=== PATIENT | male | born 1945 | race Caucasian/White ===

== ENCOUNTER 2024-08-31 10:18 | Day surgery (SDC) | payer MEDICARE, MEDICAID, SELFPAY ==
[2024-08-30 08:15] LABS: Hemoglobin 12.1 g/dL (13.0-16.5); Mean Corp Hgb Conc 31.8 g/dL (32-36); Mean Corpuscular Hgb 29.7 pg (27.0-32.0); Mean Corpuscular Volume 93.4 fL (80-94); Mean Platelet Vol. 9.2 fl (6.2-12.0); Platelet Count 441 K/mm3 (150-450); RBC Distribution Width CV 15.3 % (11.6-14.6); RBC Distribution Width SD 51.9 fl (35.1-43.9); Red Blood Count 4.07 M/mm3 (4.6-6.2); White Blood Count 10.2 K/mm3 (4.4-11.0)
[2024-08-30 08:46] LABS: International Normalized Ratio 1.1; Prothrombin Time (Protime)PT. 13.9 SECONDS (11.7-14.9)
[2024-08-30 08:47] LABS: Partial Thromboplast Time 30.5 Seconds (24.1-36.2)
[2024-08-30 08:49] LABS: AST(SGOT) 17 U/L (15-37); Alanine Aminotransfer ALT/SGPT 15 U/L (16-61); Albumin, Serum 2.9 g/dL (3.2-5.0); Alkaline Phosphatase 103 U/L (45-117); Anion Gap 8 (5-15); BUN 31 mg/dL (7-18); BUN/Creat Ratio 20.1 RATIO (10-20); Calcium,Total 9.9 mg/dL (8.5-10.1); Chloride 97 mmol/L (98-107); Creatinine, Serum 1.54 mg/dL (0.70-1.30); EST Glomerular Filtration Rate 47 mL/min (>60); Est Glom Filt Rate - Afr Amer 56 mL/min (>60); Globulin 4.6 g/dL (2.2-4.2); Glucose 109 mg/dL (74-106); Potassium 4.2 mmol/L (3.5-5.1); Protein, Total 7.5 g/dL (6.4-8.2); Sodium Level 135 mmol/L (136-145)
--- NOTE | 2024-08-30 08:49 | PAT.ANESEVAL ---
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 When Was Last Pacemaker Check QUESTION #4 FULL TEXT: You/Your Family Experience fever (hyperthermia) with Anesthesia Last Oral Intake Last Oral intake: Last Oral Intake NPO since Meds taken in AM with sips of water? Meds patient instructed to take am of surgery PONV PONV - instrument repair technician: PONV - instrument repair technician Female No 08/27/24 14:26 HX of Motion Sickness No 08/27/24 14:26 HX of N/V After Surgery No 08/27/24 14:26 Non-Smoker Yes 08/27/24 14:26 Duration of Surgery greater Yes 08/27/24 14:26 than 60 minutes Number of Risk Factors 2 08/27/24 14:26 PONV Score Moderate Risk 08/27/24 14:26 Height & Weight Height & Weight: Anesthesia: Height & Weight Height 6 ft 1 in 06/03/24 08:42 Respiratory Assessment Respiratory Assessment - instrument repair technician: Respiratory Tract Infection Hx - instrument repair technician Hx Respiratory Tract Infection No 08/27/24 14:26 STOP Sleep Apnea STOP Sleep Apnea - instrument repair technician: STOP Sleep Apnea - instrument repair technician Hx Hypertension Yes: per pt, controlled on 08/27/24 14:26 meds Hx Sleep Apnea No 08/27/24 14:26 CPAP BIPAP Do you snore loudly (louder No 08/27/24 14:26 than talking or can be heard Do you often feel tired/ No 08/27/24 14:26 fatigued/ sleepy during daytime? Has anyone observed you stop No 08/27/24 14:26 breathing during sleep? STOP Results Negative 08/27/24 14:26 QUESTION #5 FULL TEXT : Do you snore loudly (louder than talking or can be heard through closed doors)? 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 Specify any problems Hx of Preganancy in last 3 N/A 08/27/24 14:26 Months Nurse Filling Out Transfusion [id number] 08/27/24 14:26 & Questions: Date: 08/27/24 08/27/24 14:26 Time: 14:08/27/24 14:26 Patient unable to answer at this time (ie. confused, unrespo /Reproduction History /Reproductive History - instrument repair technician: /Reproductive Hx- instrument repair technician Hx Now Gestational Age (in weeks): EDC: Hx Hx Para Hx Section SAB Active Medications Active Medications: Current Medications Generic Name Dose Route Start Last Admin Trade Name Freq PRN Reason Stop Dose Admin Cefazolin Sodium 2 gm/ N/A 20 mls @ 400 mls/hr 08/31/24 12:05 IV 08/31/24 12:07 PREOP ONE [facility] Medical History (Updated 08/27/24 @ 14:37 by Lauren Robbins) Wears glasses Alcohol use Abrasion Gout Arthritis Walker as ambulation aid Injury of back History of hiatal hernia Gastric reflux Non-smoker Shortness of breath on exertion History of stress test History of echocardiogram Cardiology follow-up encounter Humerus fracture GERD (gastroesophageal reflux disease) Dyslipidemia Vitamin D deficiency Right ventricular enlargement Right atrial enlargement Pulmonary artery hypertension Macrocytosis without anemia Lumbar spondylolysis History of DVT (deep vein thrombosis) Degenerative lumbar spinal stenosis COPD (chronic obstructive pulmonary disease) Mitral valve regurgitation Left atrial dilatation RICARDO (obstructive sleep apnea) Atrial fibrillation Chronic diastolic HF (heart failure) Stage 3a chronic kidney disease Home Medications ?Medication ?Instructions ?Recorded ?Last Taken ?Type apixaban 5 mg tablet (Eliquis) 5 mg PO BID 05/19/23 Unknown History bumetanide 1 mg tablet 1 mg PO DAILY 05/19/23 Unknown History diltiazem HCl 180 mg 180 mg PO DAILY 05/19/23 Unknown History capsule,extended release 24 hr duloxetine 30 mg capsule,delayed 30 mg PO DAILY 05/19/23 Unknown History release magnesium oxide 400 mg PO DAILY 05/19/23 Unknown History oxycodone-acetaminophen 5 mg-325 1 tab PO Q6H PRN pain 05/19/23 Unknown History mg tablet ferrous sulfate 325 mg (65 mg 325 mg PO DAILY 06/11/23 Unknown History iron) tablet midodrine 2.5 mg tablet 2.5 mg PO ONCE PRN if SBP<100 12/11/23 Unknown History albuterol sulfate 90 mcg/actuation 1 puff inhalation Q4H PRN 06/03/24 Unknown History aerosol inhaler shortness of breath or wheezing cholecalciferol (vitamin D3) 1,250 50,000 unit PO QWEEK 06/03/24 Unknown History mcg (50,000 unit) capsule fluticasone 100 mcg-salmeterol 50 1 inh inhalation Q12H 06/03/24 Unknown History mcg/dose blistr powdr for inhalation ([employer] Inhub) omeprazole 20 mg capsule,delayed 20 mg PO QDAY 06/03/24 Unknown History release atorvastatin 10 mg tablet 10 mg PO QHS 08/26/24 Unknown History calcium carbonate 500 mg PO QDAY 08/26/24 Unknown History Allergy/AdvReac Type Severity Reaction Status Date / Time No Known Allergies Allergy Verified 08/27/24 14:18 Family History Sister Brain tumor COPD (chronic obstructive pulmonary disease) Son Down syndrome Myocardial infarction CHF (congestive heart failure) Father Myocardial infarction Mother No problems noted. Surgical History (Updated 08/27/24 @ 14:37 by Lauren Robbins) History of cardiac catheterization History of bilateral cataract extraction History of colonoscopy History of left heart catheterization H/O right knee surgery Social History Smoking Status: Never smoker alcohol intake: current alcohol intake frequency: 3 or more drinks per day Alcohol type: hard liquor substance use type: does not use caffeine: No Audit: Pertinent Findings Pertinent Findings EKG Perinent findings: 06/11/2023 atrial fibrillation Consult pertinent findings: Cardiology 06/03/2024 atrial fibrillation permanent echo 01/30/2023 EF 60 to 65% heart catheterization 2018 no obstructive coronary artery disease rate control with diltiazem 180 mg p.o. daily and Eliquis 5 mg p.o. twice daily Recommendation Anesthesia Recommendation Anesthesia recommendation: OPTIMIZED for anesthesia
[2024-08-31] VITALS (10 sets, daily range): BP systolic 121–136; BP diastolic 68–85; PULSE 67–79; RESP 16–18; TEMP 36.1–36.2; O2SAT 90–97; BMI 30.9
[2024-08-31] MEDS: 0.9% Normal Saline (1000mL) 1,000 ML 15 ML IV (10:54)
--- NOTE | 2024-08-31 11:19 | PCM.PRE.AN2 ---
ASA Classification* ASA Classification ASA Classification: 3 Assessment & Plan Anesthesia* Anesthesia Assessment Anesthesia Assessment: Discussed sedation and/or anesthesia options, risks, benefits, and alternatives with patient/parents/legal guardian/POA. Questions invited. The patient/parents/legal guardian/POA seems to understand and agrees to proceed with anesthesia plan. Reviewed the physical assessment, medical history, allergy history and patient home medications list prior to surgery/procedure/anesthetic and documented any changes. Performed airway and anesthesia risk assessments. Anesthesia Type Anesthesia Type: General and Block (Patient is consented for interscalene block.) History Source History Obtained from:: Patient and Chart Anesthesia Focused Assessment* Temperature: 97.2 F Pulse Rate: 67 Blood Pressure: 121/68 Respiratory Rate: 16 Pulse Ox: 97 Oxygen Delivery Method: Room Air Airway Assessment Mouth opens: >3 cm Mallampati Score: III Teeth Condition: Chipped/Broken (Multiple chipped.) Neck Range of motion (ROM): Limited ROM Focused Labs Anesthesia Preop lab: CBC WBC 10.2 K/mm3 (4.4-11.0) 08/30/24 07:45 08/30/24 RBC 4.07 M/mm3 (4.6-6.2) L 08/30/24 07:45 08/30/24 Hgb 12.1 g/dL (13.0-16.5) L 08/30/24 07:45 08/30/24 Hct 38.0 % (40-54) L 08/30/24 07:45 08/30/24 Plt Count 441 K/mm3 (150-450) 08/30/24 07:45 08/30/24 CHEMISTRY Potassium 4.2 mmol/L (3.5-5.1) 08/30/24 07:45 08/30/24 Sodium 135 mmol/L (136-145) L 08/30/24 07:45 08/30/24 BUN 31 mg/dL (7-18) H 08/30/24 07:45 08/30/24 Creatinine 1.54 mg/dL (0.70-1.30) H 08/30/24 07:45 08/30/24 Glucose 109 mg/dL (74-106) H 08/30/24 07:45 08/30/24 COAG PT 13.9 SECONDS (11.7-14.9) 08/30/24 07:45 08/30/24 Pre-Assessment Diagnosis/Proposed Procedure Planned Operative Procedure(s): (R) Right humerus open reduction internal fixation, shoulder arthroscopy Anesthesia History 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 When Was Last Pacemaker Check QUESTION #4 FULL TEXT: You/Your Family Experience fever (hyperthermia) with Anesthesia Last Oral Intake Last Oral intake: Last Oral Intake NPO since 06:00 08/31/24 10:42 Meds taken in AM with sips of Yes 08/31/24 10:42 water? 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 Female No 08/27/24 14:26 HX of Motion Sickness No 08/27/24 14:26 HX of N/V After Surgery No 08/27/24 14:26 Non-Smoker Yes 08/27/24 14:26 Duration of Surgery greater Yes 08/27/24 14:26 than 60 minutes Number of Risk Factors 2 08/27/24 14:26 PONV Score Moderate Risk 08/27/24 14:26 Height & Weight Height & Weight: Anesthesia: Height & Weight Height 6 ft 1 in 08/31/24 10:42 Weight: 106.594 kg 08/31/24 10:42 Body Mass Index (BMI) 30.9 08/31/24 10:42 Respiratory Assessment Respiratory 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 Has anyone observed you stop No 08/27/24 14:26 breathing during sleep? STOP Results Negative 08/27/24 14:26 QUESTION #5 FULL TEXT : Do you snore loudly (louder than talking or can be heard through closed doors)? 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 Specify any problems Hx of Preganancy in last 3 N/A 08/27/24 14:26 Months Nurse Filling Out Transfusion MGRIFFITH 08/27/24 14:26 & Questions: Date: 08/27/24 08/27/24 14:26 Time: 14:08/27/24 14:26 Patient unable to answer at this time (ie. 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: /Reproductive Hx- red cross executive director Hx Now Gestational Age (in weeks): EDC: Hx Hx Para Hx Section SAB Active Medications Active Medications: Current Medications Generic Name Dose Route Start Last Admin Trade Name Freq PRN Reason Stop Dose Admin Cefazolin Sodium 2 gm/ N/A 20 mls @ 400 mls/hr 08/31/24 12:05 IV 08/31/24 12:07 PREOP ONE Sodium Chloride 1,000 mls @ 15 mls/hr 08/31/24 10:30 08/31/24 10:54 IV 09/05/24 23:49 15 mls/hr .Q48H KEVIN Administration Protocol [facility] Medical History Wears glasses Alcohol use Abrasion Gout Arthritis Walker as ambulation aid Injury of back History of hiatal hernia Gastric reflux Non-smoker Shortness of breath on exertion History of stress test History of echocardiogram Cardiology follow-up encounter Humerus fracture GERD (gastroesophageal reflux disease) Dyslipidemia Vitamin D deficiency Right ventricular enlargement Right atrial enlargement Pulmonary artery hypertension Macrocytosis without anemia Lumbar spondylolysis History of DVT (deep vein thrombosis) Degenerative lumbar spinal stenosis COPD (chronic obstructive pulmonary disease) Mitral valve regurgitation Left atrial dilatation RICARDO (obstructive sleep apnea) Atrial fibrillation Chronic diastolic HF (heart failure) Stage 3a chronic kidney disease Home Medications ?Medication ?Instructions ?Recorded ?Last Taken ?Type apixaban 5 mg tablet (Eliquis) 5 mg PO BID 05/19/23 08/27/24 History bumetanide 1 mg tablet 1 mg PO DAILY 05/19/23 Unknown History diltiazem HCl 180 mg 180 mg PO DAILY 05/19/23 08/31/24 History capsule,extended release 24 hr duloxetine 30 mg capsule,delayed 30 mg PO DAILY 05/19/23 Unknown History release magnesium oxide 400 mg PO DAILY 05/19/23 Unknown History oxycodone-acetaminophen 5 mg-325 1 tab PO Q6H PRN pain 05/19/23 08/31/24 02:00 History mg tablet ferrous sulfate 325 mg (65 mg 325 mg PO DAILY 06/11/23 Unknown History iron) tablet midodrine 2.5 mg tablet 2.5 mg PO ONCE PRN if SBP<100 12/11/23 Unknown History albuterol sulfate 90 mcg/actuation 1 puff inhalation Q4H PRN 06/03/24 Unknown History aerosol inhaler shortness of breath or wheezing cholecalciferol (vitamin D3) 1,250 50,000 unit PO QWEEK 06/03/24 Unknown History mcg (50,000 unit) capsule fluticasone 100 mcg-salmeterol 50 1 inh inhalation Q12H 06/03/24 Unknown History mcg/dose blistr powdr for inhalation ([employer] Inhub) omeprazole 20 mg capsule,delayed 20 mg PO QDAY 06/03/24 08/31/24 History release atorvastatin 10 mg tablet 10 mg PO QHS 08/26/24 Unknown History calcium carbonate 500 mg PO QDAY 08/26/24 Unknown History Allergy/AdvReac Type Severity Reaction Status Date / Time No Known Allergies Allergy Verified 08/31/24 10:40 Family History Sister Brain tumor COPD (chronic obstructive pulmonary disease) Son Down syndrome Myocardial infarction CHF (congestive heart failure) Father Myocardial infarction Mother No problems noted. Surgical History History of cardiac catheterization History of bilateral cataract extraction History of colonoscopy History of left heart catheterization H/O right knee surgery Social History Smoking Status: Never smoker alcohol intake: current alcohol intake frequency: 3 or more drinks per day Alcohol type: hard liquor substance use type: does not use caffeine: No Review of Systems (Anesthesia) ROS Narrative System reviewed and no additional complaints, except as documented.
--- NOTE | 2024-08-31 11:59 | PCM.HP.STD ---
HPI - General HPI Narrative CLARISSA RESTREPO, is a 78 M who presents for right humerus open reduction internal fixation, shoulder arthroscopy. No changes to history and physical exam. Right shoulder marked. Risks alternatives benefits as well as postoperative care and narcotic counseling given. Stopped his eliquis friday evening. Patient understands no further questions we will proceed. MR#: [id number] Acct: [id number] Name: CLARISSA RESTREPO II Rep #: [id number] : 1945 Provider: Dr. Shar Choudhury MD Age/Sex: 78/M Location: [facility] [place] Status: Signed Intake Vital Signs 06/03/2408:42 Height 6 ft 1 in Weight: 240 lb BMI 31.6 BP 114/75 Blood Pressure Location Lt brachial Position Sitting Respiration 18 Pulse 79 Pulse Source NIBP Intake Visit Reasons: RIGHT HUMERUS Chief Complaint: [facility] Follow-Up Accompanied by: Is patient in pain?: Yes Pain scale (1-10): 10 Allergies No Known Allergies Allergy (Unverified 08/26/24 09:17) Medications ?Medication ?Instructions ?Recorded ?Confirmed ?Type apixaban 5 mg tablet (Eliquis) 5 mg PO BID 05/19/23 08/26/24 History bumetanide 1 mg tablet 1 mg PO DAILY 05/19/23 08/26/24 History diltiazem HCl 180 mg 180 mg PO DAILY 05/19/23 08/26/24 History capsule,extended release 24 hr duloxetine 30 mg capsule,delayed 30 mg PO DAILY 05/19/23 08/26/24 History release magnesium oxide 400 mg PO DAILY 05/19/23 08/26/24 History oxycodone-acetaminophen 5 mg-325 1 tab PO Q6H PRN 05/19/23 08/26/24 History mg tablet ferrous sulfate 325 mg (65 mg 325 mg PO DAILY 06/11/23 08/26/24 History iron) tablet spironolactone 50 mg tablet 50 mg PO DAILY 06/11/23 08/26/24 History midodrine 2.5 mg tablet 2.5 mg PO ONCE PRN 12/11/23 08/26/24 History albuterol sulfate 90 mcg/actuation inhalation 06/03/24 08/26/24 History aerosol inhaler cholecalciferol (vitamin D3) 1,250 50,000 unit PO QWEEK 06/03/24 08/26/24 History mcg (50,000 unit) capsule fluticasone 100 mcg-salmeterol 50 inhalation 06/03/24 08/26/24 History mcg/dose blistr powdr for inhalation (Wixela Inhub) omeprazole 20 mg capsule,delayed 20 mg PO QDAY 06/03/24 08/26/24 History release atorvastatin 10 mg tablet 10 mg PO QHS 08/26/24 08/26/24 History calcium carbonate 500 mg PO QDAY 08/26/24 08/26/24 History Have you fallen in the past year?: Yes PFSH Medical History Humerus fracture GERD (gastroesophageal reflux disease) Dyslipidemia Vitamin D deficiency Right ventricular enlargement Right atrial enlargement Pulmonary artery hypertension Macrocytosis without anemia Lumbar spondylolysis History of DVT (deep vein thrombosis) Degenerative lumbar spinal stenosis COPD (chronic obstructive pulmonary disease) Mitral valve regurgitation Left atrial dilatation RICARDO (obstructive sleep apnea) Atrial fibrillation Chronic diastolic HF (heart failure) Stage 3a chronic kidney disease Surgical History History of left heart catheterization H/O right knee surgery Family History Sister Brain tumor COPD (chronic obstructive pulmonary disease)Son Down syndrome Myocardial infarction CHF (congestive heart failure)Father Myocardial infarctionMother No problems noted. Social History Smoking Status: Never smoker alcohol intake: current alcohol intake frequency: 3 or more drinks per day Alcohol type: hard liquor substance use type: does not use caffeine: No HPI RIGHT HUMERUS Details: This documentation accurately reflects the service provided and the decisions made by me, Dr. Shar Choudhury MD 08/26/24 0820. Part of today?s visit was documented by [ ], acting as scribe. CLARISSA RESTREPO is a 78 year old M here today for 2 days follow-up from a right humeral shaft fracture proximal third. RHD. 3 days ago. Here with his . He mostly walks with a walker here in a wheelchair today. He tripped had a ground-level fall while using his walker. Had a bit of a skin tear in the right elbow they took care of that clean that and put a bandage on there. Supplemental Info X-ray report from 08/24/2024 x-rays of the right elbow and shoulder were obtained this demonstrates comminuted right proximal humeral shaft fracture with overriding fracture fragments and surrounding soft tissue inflammatory changes. Agree with radiologist interpretation. Repeat x-rays 2 views of the right shoulder demonstrate no intra-articular involvement Coding Level of Care Code Off vis,new,level 4 Diagnoses Humerus fracture S42.309A Assessment and Plan Assessment and Plan (1) Humerus fracture: Status: Acute Plan: CLARISSA RESTREPO is a 78 year old M here today for 2 days follow-up from a right humeral shaft fracture proximal third. Discussed the pros cons risks and benefits of nonoperative management versus surgery. Nonoperative would be a prolonged healing process possibly malunion pain stiffness and other risks. The patient uses their upper extremities quite a bit for ambulation. I think the best option here would be surgical fixation with an intramedullary yoseph device. The patient would like to go ahead with the right humerus open reduction internal fixation, shoulder arthroscopy (for visualization). We will try to get the case done next week. Risks of surgery were discussed as well as possible need for blood products the patient signed the consent for now sling and will have to get a clearance from the braided rug maker/family doctor. There are extensive past medical history as well as heart history would predispose him to increased risk of complications like infection problems the anesthetic or other risks. He understands. Patient would need to be off the Eliquis for 48 hours. Pros and cons risks and benefits were discussed with the patient including but not limited to infection, pain, stiffness, bleeding, damage to surrounding structures, neurovascular injury, recurrence or retear, failure or wear of hardware or fixation, instability, fracture, deep vein thrombosis and pulmonary embolism, anesthetic risks, , patient dissatisfaction, need for further surgery and other risks. Patient understood and wished to proceed with surgery, and signed the informed consent documentation. Orders: Orders Shoulder min 2 Views Today S42.309A - Unspecified fracture of shaft of humerus, unspecified arm, initial encounter for closed fracture Clinical Quality Measures Falls Risk Screening/Assistive Devices Have you fallen in the past year?: Yes Ortho Exam General General: Yes no acute distress Neurologic: Yes alert and Yes oriented x3 Psychologic: Yes reasonable and appropriate Right Shoulder Skin/Wound: Yes CDI, Yes ecchymosis, No erythema and Yes swelling SHOULDER: normal motor and sens to ax nerve, and MRU and AIN/PIN Skin tear lateral aspect of the right elbow it is closed with Steri-Strips looks clean and dry. No pain at the elbow hand wrist forearm compartments soft. Pain and swelling up to the proximal humerus. [facility] Medical History Wears glasses Alcohol use Abrasion Gout Arthritis Walker as ambulation aid Injury of back History of hiatal hernia Gastric reflux Non-smoker Shortness of breath on exertion History of stress test History of echocardiogram Cardiology follow-up encounter Humerus fracture GERD (gastroesophageal reflux disease) Dyslipidemia Vitamin D deficiency Right ventricular enlargement Right atrial enlargement Pulmonary artery hypertension Macrocytosis without anemia Lumbar spondylolysis History of DVT (deep vein thrombosis) Degenerative lumbar spinal stenosis COPD (chronic obstructive pulmonary disease) Mitral valve regurgitation Left atrial dilatation RICARDO (obstructive sleep apnea) Atrial fibrillation Chronic diastolic HF (heart failure) Stage 3a chronic kidney disease Home Medications ?Medication ?Instructions ?Recorded ?Last Taken ?Type apixaban 5 mg tablet (Eliquis) 5 mg PO BID 05/19/23 08/27/24 History bumetanide 1 mg tablet 1 mg PO DAILY 05/19/23 Unknown History diltiazem HCl 180 mg 180 mg PO DAILY 05/19/23 08/31/24 History capsule,extended release 24 hr duloxetine 30 mg capsule,delayed 30 mg PO DAILY 05/19/23 Unknown History release magnesium oxide 400 mg PO DAILY 05/19/23 Unknown History oxycodone-acetaminophen 5 mg-325 1 tab PO Q6H PRN pain 05/19/23 08/31/24 02:00 History mg tablet ferrous sulfate 325 mg (65 mg 325 mg PO DAILY 06/11/23 Unknown History iron) tablet midodrine 2.5 mg tablet 2.5 mg PO ONCE PRN if SBP<100 12/11/23 Unknown History albuterol sulfate 90 mcg/actuation 1 puff inhalation Q4H PRN 06/03/24 Unknown History aerosol inhaler shortness of breath or wheezing cholecalciferol (vitamin D3) 1,250 50,000 unit PO QWEEK 06/03/24 Unknown History mcg (50,000 unit) capsule fluticasone 100 mcg-salmeterol 50 1 inh inhalation Q12H 06/03/24 Unknown History mcg/dose blistr powdr for inhalation (Jennyxtobi Inhub) omeprazole 20 mg capsule,delayed 20 mg PO QDAY 06/03/24 08/31/24 History release atorvastatin 10 mg tablet 10 mg PO QHS 08/26/24 Unknown History calcium carbonate 500 mg PO QDAY 08/26/24 Unknown History Allergy/AdvReac Type Severity Reaction Status Date / Time No Known Allergies Allergy Verified 08/31/24 10:40 Family History Sister Brain tumor COPD (chronic obstructive pulmonary disease) Son Down syndrome Myocardial infarction CHF (congestive heart failure) Father Myocardial infarction Mother No problems noted. Surgical History History of cardiac catheterization History of bilateral cataract extraction History of colonoscopy History of left heart catheterization H/O right knee surgery Social History Smoking Status: Never smoker alcohol intake: current alcohol intake frequency: 3 or more drinks per day Alcohol type: hard liquor substance use type: does not use caffeine: No Vital Signs Vital Signs Vital Signs: 08/31/24 10:42 08/31/24 10:42 08/31/24 11:29 Temperature 97.2 F L 97.2 F L Temperature Source Temporal Pulse Rate 67 67 Respiratory Rate 16 16 Respiratory Pattern Normal Blood Pressure 121/68 H 121/68 H Blood Pressure Mean 85 Blood Pressure Source Monitor Blood Pressure Position Semi-Fowlers Blood Pressure Location Left Arm Pulse Ox 97 97 Oxygen Delivery Method Room Air Room Air Weight Weight: 235 lb Body Mass Index (BMI) 30.9 Results Lab / Micro Data 08/30/24 07:45 08/30/24 07:45
[2024-08-31] MEDS: Cefazolin 2 GM in Syringe IV (13:13)
--- NOTE | 2024-08-31 13:15 | RAD_ITS ---
PROCEDURE: RIGHT HUMERUS IN OPERATING ROOM WITH MOBILE C-ARM REASON FOR EXAM: INTERNAL FIXATION OF RIGHT HUMERAL FRACTURE. TECHNIQUE: Seven (7) intraoperative images. COMPARISON: Right humerus dated 08/26/2024. FINDINGS: Images obtained during internal fixation at several stages shows eventual placement of an intramedullary yoseph and fixation screws immobilizing the comminuted fracture of the proximal humerus. RAD/Humerus min 2 Views IMPRESSION: Satisfactory post internal fixation images of the right humerus. For further d etail of the procedure please see Dr. Choudhury's postoperative report. Fluoroscopic time: 55.7 sec. Dose: 24.41 mGy Reading Location: [facility]
--- NOTE | 2024-08-31 14:53 | OP.PCM_ITS ---
Problems Associated Problem List Diagnoses (1) Humerus fracture: Procedures Musculoskeletal [id number]: Other Procedure See Report Operative Report (Standard) Operative Information Date of Procedure: 08/31/24 Pre-Operative Diagnosis: Right humerus fracture Post-Operative Diagnosis: Same Surgery/Procedure Performed: Right shoulder arthroscopy, debridement, open reduction internal fixation humerus fracture intramedullary nailing pattern scratcher: Gunnar Director Microbiology: darlene Tasks completed by office assistance: Retracting Type of Anesthesia: Block,Regional and General RN Documented Start/Stop Times: Operation Date: 08/31/24 12:05 Case Time Into Pre-Op 08/31/24 10:25 Anesthesia Start 08/31/24 12:40 Into Room 08/31/24 12:40 Procedure Start 08/31/24 13:21 Procedure Start Time: 13:21 Procedure Stop Time: 15:05 Select all DRAINS/GRAFTS/IMPLANTS that apply: Implanted device Implanted device details: arthrex humerus nail short Estimated Blood Loss: 100 Specimen collected: No Description of surgery: Patient brought to the operating theater. Placed supine on the beachchair positioner. All bony prominences padded. SCDs on the legs. 2 g IV Ancef administered prior to start the case. General anesthesia was induced. Patient sat up at a 45 degree angle arm cardoso to the patient's right side. Upper extremity prepped and draped in usual sterile fashion chlorhexidine-based prep solution allowing over 3 minutes drying time prior to draping. Preoperative timeout performed to confirm the site patient and the surgery. Began by doing an arthroscopy of the shoulder. Intra-articular extent of the shoulder was examined as well as the subacromial space. Debrided the bursa, hematoma, labrum, rotator interval and undersurface supraspinatous. There is some minor fraying of the rotator cuff tendon otherwise intact. Biceps tendon appeared intact. There is a large amount of intra-articular hematoma. There is some minor fraying of the rotator cuff tendon otherwise intact. Biceps tendon appeared intact. There is a large amount of intra-articular hematoma I debrided this through an anterior portal through the rotator interval. There is a grade 1-2 changes of the cartilage on the glenoid side humeral head cartilage appeared normal. I got the start point for the guidewire for the nail using IntraOp AP and lateral fluoroscopy as well as the arthroscopy instrumentation. I ensured that this was just off the anterior margin of the rotator cuff and just adjacent to the articular cartilage. Guidewire passed down distally. I passed a guidewire through the portal of Neviaser. I used the opening reamer to an appropriate depth. I selected the Arthrex short nail placed this on the drop-down guide inserted this to an appropriate depth across the fracture site. Buried nail about 3mm. I had to make a small longitudinal incision over the fracture site directly at that to get the fracture appropriately reduced and placed some mild longitudinal traction on the humerus. I irrigated the fracture site of any hematoma. I then placed 4 proximal fully threaded screws 5.0 mm. 2 these were slightly long head to be backed off and shortened. I then turned my attention distally using the drop-down guide and inserted the 3.5 mm cortical screws through the distal end of the nail with the fracture reduced. I remove the drop-down guide I took final AP lateral radiographs ensure appropriate position of the fracture and the nail. Wounds thoroughly irrigated. I reinserted the arthroscope to ensure the nail was appropriately placed and debrided any sort of bone fragments that had been drilled into the joint. Arthroscopy pictures taken and saved onto the system. I then closed the subcutaneous tissue with 2-0 Vicryl suture and skin with 3-0 Monocryl. Skin was cleaned with wet dry dressing followed application of Steri- Strips Adaptic 4 x 4 gauze ABD dressing cloth tape and an abduction pillow sling for the upper extremity. Patient woken up from a general anesthetic transferred off the operating table taken to postanesthetic care unit in stable condition. All sponge needle instrument counts were correct and complications. Plan to the patient discharged home according to day surgery criteria follow-up in the office within 2 weeks time only pendulum exercises for the first 2 weeks. CPT [id number]? Surgical Findings: humerus fracture, hemarthrosis Complications Complications: No Admit VTE Documentation VTE Present on Admission: No VTE Mechan Device Prophylaxis: SCD's VTE Pharm Prophylaxis ordered?: No Reason prophylaxis not ordered: Treatment Not Indicated
--- NOTE | 2024-08-31 15:03 | EX.PCM.DISCH ---
Discharge Instructions Diet Discharge Diet: No restrictions Activity Ice area for (Minutes): 10 Lifting Restrictions: no lifting, pendulums only 2-3 times a day Dressing / Incision Call your doctor if your incision/area has: Continuous Slow Oozing, Sudden Increased Bleeding, Increased Pain/ Swelling, Increased Redness, Foul Smelling Discharge and Swelling at the incision site Call your doctor if you observe: Fever of 101 or Higher, Coldness, Increased Pain and Numbness or Tingling Remove Dressing in: leave in place till F/U Cleanse incision/area with: Do not get Incision Wet Follow Up Care Please Follow Up With: Shar Choudhury MD When: within 2 weeks Test Results: Test results from this visit will be discussed in further detail at your follow-up appointment, if applicable. Discharge Plan Admission Attending Provider: Shar Choudhury Primary Care Provider: Shar Hampton Instructions Print Language: Frisian Discharge Orders/Prescriptions Prescriptions: New oxycodone-acetaminophen [Endocet] 5-325 mg tablet 1 tab PO Q4H MDD 6 PRN (Reason: pain) 3 Days Qty: 20 0RF No Action oxycodone-acetaminophen 5-325 mg tablet 1 tab PO Q6H PRN (Reason: pain) Eliquis 5 mg tablet 5 mg PO BID diltiazem HCl 180 mg capsule,extended release 24hr 180 mg PO DAILY duloxetine 30 mg capsule,delayed release(DR/EC) 30 mg PO DAILY magnesium oxide 400 mg magnesium tablet 400 mg PO DAILY bumetanide 1 mg tablet 1 mg PO DAILY Rx Instructions: 2 tabs M-W-F 1 tab the rest of the week ferrous sulfate 325 mg (65 mg iron) tablet 325 mg PO DAILY midodrine 2.5 mg tablet 2.5 mg PO ONCE PRN (Reason: if SBP<100) Rx Instructions: take 2 tablets TID if SBP<100 cholecalciferol (vitamin D3) 1,250 mcg (50,000 unit) capsule 50,000 unit PO QWEEK omeprazole 20 mg capsule,delayed release(DR/EC) 20 mg PO QDAY fluticasone propion-salmeterol [Wixela Inhub] 100-50 mcg/dose blister with device 1 inh inhalation Q12H Patient Comments: [NO ORIGINAL SIG] albuterol sulfate 90 mcg/actuation HFA aerosol inhaler 1 puff inhalation Q4H PRN (Reason: shortness of breath or wheezing) atorvastatin 10 mg tablet 10 mg PO QHS calcium carbonate 500 mg calcium (1,250 mg) tablet 500 mg PO QDAY Other Ambulatory Orders: 12 Lead EKG (Routine) Timeframe: 20240830 Location: None Selected Ordered By: Dr. Jax Donovan Referrals / Follow Up: José Tavarez MD [Non-Staff] - Shar Choudhury MD [Med Staff - Active Staff] - Disposition Disposition (needs filled in before D/C Order can be placed): Home, Self Care
--- NOTE | 2024-08-31 15:20 | PCM.POST.ANE ---
Anesthesia: Postop Eval I Current Vital Signs Temperature: 97.2 F Pulse Rate: 79 Blood Pressure: 123/76 Respiratory Rate: 18 Pulse Ox: 92 Oxygen Delivery Method: Room Air Assessment Airway patent: No Spontaneous unlabored respirations: Yes Mental status: Awake nausea: No Vomiting: No Anesthesia Complication: No Fluid Hydration Crystalloid volume administer (ml): 1,000 Total IV fluid infused: 1,000 Progress Note Anesthesia document: Postop Eval 1 completed: Yes
--- NOTE | 2024-08-31 18:50 | POSTOPAN2_ITS ---
Anesthesia Postop Eval I Sum Postop Eval Completion status Anesthesia document: Postop Eval 1 completed: Yes Anesthesia Postop Eval I Summary Anesthesia Postop Eval I Summary: Anesthesia Postop Eval I: Assessment Summary Airway patent No 08/31/24 15:21 GEOSPATIAL DEVELOPER.ACAR Spontaneous unlabored Yes 08/31/24 15:21 GEOSPATIAL DEVELOPER.ACAR respirations Mental status Awake 08/31/24 15:21 GEOSPATIAL DEVELOPER.ACAR nausea No 08/31/24 15:21 GEOSPATIAL DEVELOPER.ACAR Vomiting No 08/31/24 15:21 GEOSPATIAL DEVELOPER.ACAR Anesthesia Postop Eval I: Fluid Summary Crystalloid volume administer 1,000 08/31/24 15:21 GEOSPATIAL DEVELOPER.ACAR (ml) Colloids volume administered ( ml) Blood Product volume administered (ml) Total IV fluid infused 1,000 08/31/24 15:21 GEOSPATIAL DEVELOPER.ACAR Anesthesia Postop Eval I: Summary Notes Anesthesia Complication No 08/31/24 15:21 GEOSPATIAL DEVELOPER.ACAR Anesthesia Complication Comment: Post-operative progress note Anesthesia: Postop Eval II Evaluation Mental status: Awake and Calm Pain Level: 1 nausea: No Vomiting: No Complications Anesthesia Complication: No
--- NOTE | 2024-08-31 18:50 | PCM.POSTANE2 ---
Anesthesia Postop Eval I Sum Postop Eval Completion status Anesthesia document: Postop Eval 1 completed: Yes Anesthesia Postop Eval I Summary Anesthesia Postop Eval I Summary: Anesthesia Postop Eval I: Assessment Summary Airway patent No 08/31/24 15:21 CHEMICAL DEPENDENCY COUNSELOR.ACAR Spontaneous unlabored Yes 08/31/24 15:21 CHEMICAL DEPENDENCY COUNSELOR.ACAR respirations Mental status Awake 08/31/24 15:21 CHEMICAL DEPENDENCY COUNSELOR.ACAR nausea No 08/31/24 15:21 CHEMICAL DEPENDENCY COUNSELOR.ACAR Vomiting No 08/31/24 15:21 CHEMICAL DEPENDENCY COUNSELOR.ACAR Anesthesia Postop Eval I: Fluid Summary Crystalloid volume administer 1,000 08/31/24 15:21 CHEMICAL DEPENDENCY COUNSELOR.ACAR (ml) Colloids volume administered ( ml) Blood Product volume administered (ml) Total IV fluid infused 1,000 08/31/24 15:21 CHEMICAL DEPENDENCY COUNSELOR.ACAR Anesthesia Postop Eval I: Summary Notes Anesthesia Complication No 08/31/24 15:21 CHEMICAL DEPENDENCY COUNSELOR.ACAR Anesthesia Complication Comment: Post-operative progress note Anesthesia: Postop Eval II Evaluation Mental status: Awake and Calm Pain Level: 1 nausea: No Vomiting: No Complications Anesthesia Complication: No
== END 2024-08-31 16:44 | disposition home or self-care (01) ==
LOC: SDC 10:19 → AC 10:19
PROVIDERS: Anesthesiology; Referring Provider Orthopaedic Surgery Sports Medicine; Visit Provider Orthopaedic Surgery Sports Medicine
PROC: (CPT 24516; principal; 2024-08-31 11:45)
DX: S42.301A Unspecified fracture of shaft of humerus, right arm, initial encounter for closed fracture (principal); I50.32 Chronic diastolic (congestive) heart failure; I13.0 Hypertensive heart and chronic kidney disease with heart failure and stage 1 through stage 4 chronic kidney disease, or unspecified chronic kidney disease; J44.9 Chronic obstructive pulmonary disease, unspecified; N18.31 Chronic kidney disease, stage 3a; K21.9 Gastro-esophageal reflux disease without esophagitis; Z79.01 Long term (current) use of anticoagulants; E78.5 Hyperlipidemia, unspecified; Z86.718 Personal history of other venous thrombosis and embolism; W01.0XXA Fall on same level from slipping, tripping and stumbling without subsequent striking against object, initial encounter
CPT/HCPCS: 24516; 29822; 01630; 36415; 73060; 76000; 80048; 80076; 85027; 85610; 85730; 93005; C1713; J2405